=== PATIENT | male | born 1975 | race African-American/Black ===

== ENCOUNTER 2017-12-14 09:34 | Emergency (ER) | payer BC, MEDICAID, OTHER ==
[2017-12-14] MEDS ORDERED: Folic Acid 1 MG Tab PO ONE (09:57)
[2017-12-14] MEDS ORDERED: Thiamine 100 MG in Sodium Chloride 0.9% 100 ML IV ONE (09:57)
[2017-12-14] MEDS ORDERED: Sodium Chloride 0.9% 1,000 ML IV ONE ×2 (09:57→12:13)
[2017-12-14] MEDS ORDERED: LORazepam 2 MG/ML SDV IVPUSH ONE (09:58)
[2017-12-14] MEDS ORDERED: Ondansetron 4 MG/2 ML SDV IVPUSH ONE (10:07)
--- NOTE | 2017-12-14 10:07 | EDM.PDOC ---
ED HPI GENERAL MEDICAL PROBLEM - General Chief Complaint: General Stated Complaint: vomitting, had a seizure 2 days ago Time Seen by Provider: 12/14/17 09:35 Source of Information: Reports: Patient, Family History Limitations: Reports: Other (anxiety) - History of Present Illness INITIAL COMMENTS - FREE TEXT/NARRATIVE: 42 y.o.b.m with a long h/o ETOH use, H/O ETOH related Sz, was in [facility] yesterday , came to the ed with his SO due to shakiness and severe anxiety with N/V. no C/ P, dizziness or lightheadedness. Pt bit on his tongue, poss Sz while in [facility] yesterday. BP 126/86 Temp 36.7 RR 18 Pulse ox 100 Pulse 130 Onset Date: 12/13/17 Onset Time: 15:00 Duration: Hour(s):, Day(s):, Intermittent Location: Reports: Generalized Quality: Reports: Burning Severity: Moderate Improves with: Reports: Rest Worsens with: Reports: Other (etoh abuse) Context: Reports: Other (ETOH abuse) Associated Symptoms: Reports: Nausea/Vomiting, Seizure (ETOH relatates) headache Pain Score (Numeric/FACES): 8 - Related Data Allergies Allergy/AdvReac Type Severity Reaction Status Date / Time No Known Allergies Allergy Verified 12/14/17 09:50 Home Meds: Home Meds Omeprazole Magnesium [Prilosec Otc] 20 mg PO BID PRN #20 tablet. 07/11/15 [Rx] Ondansetron [Ondansetron ODT] 4 mg PO ASDIRECTED PRN 07/11/15 [History] Zolpidem Tartrate 10 mg PO BEDTIME PRN 08/01/15 [History] ALPRAZolam [Xanax] 0.25 mg PO BEDTIME PRN #2 tablet 12/14/17 [Rx] Ondansetron HCl [Zofran] 8 mg PO Q8HR PRN #10 tablet 12/14/17 [Rx] Past Medical History - Past Health History Medical/Surgical History: Denies Medical/Surgical History Other HEENT History: eye socket fracture Respiratory History: Reports: Intubation, Previous Neurological History: Reports: Brain Injury, Head Trauma, Seizure Other Neuro History: States he has had an episode like today in recent past. Psychiatric History: Reports: Addiction, Anxiety, Depression, Panic Attack Other Psychiatric History: ETOH abuse, hx using pot & meth. Social & Family History - Tobacco Use Smoking Status *Q: Current Every Day Smoker Years of Tobacco use: 30 Packs/Tins Daily: 0.5 Used Tobacco, but Quit: No Second Hand Smoke Exposure: No - Alcohol Use Days Per Week of Alcohol Use: 7 Number of Drinks Per Day: 2 Total Drinks Per Week: 14 - Recreational Drug Use Recreational Drug Use: Yes Drug Use in Last 12 Months: Yes Recreational Drug Type: Reports: Marijuana/Hashish ED ROS GENERAL - Review of Systems Review Of Systems: See Below Constitutional: Reports: Weakness HEENT: Reports: Other (tongue bite right side from a ETOH seizure.) Respiratory: Reports: No Symptoms Cardiovascular: Reports: No Symptoms Endocrine: Reports: No Symptoms GI/Abdominal: Reports: Nausea, Vomiting : Reports: No Symptoms Musculoskeletal: Reports: No Symptoms Skin: Reports: No Symptoms Neurological: Reports: Seizure (ETOH related) Psychiatric: Reports: Anxiety (ETOH withdrawel) Hematologic/Lymphatic: Reports: No Symptoms Immunologic: Reports: No Symptoms ED EXAM, GENERAL - Physical Exam Exam: See Below Exam Limited By: No Limitations General Appearance: Alert, WD/WN, Mild Distress Eye Exam: Bilateral Eye: Normal Inspection Ears: Normal External Exam Ear Exam: Bilateral Ear: Auricle Normal Nose: Normal Inspection Throat/Mouth: Normal Lips, Other (right sided tongue bite) Head: Atraumatic, Normocephalic Neck: Normal Inspection, Supple, Non-Tender, Full Range of Motion Respiratory/Chest: No Respiratory Distress, Lungs Clear, Normal Breath Sounds, No Accessory Muscle Use Cardiovascular: Normal Peripheral Pulses, Regular Rate, Rhythm, No Edema, No Gallop, No JVD, No Murmur, No Rub Peripheral Pulses: 1+: Radial (L) GI/Abdominal: Normal Bowel Sounds, Soft, Non-Tender, No Organomegaly, No Distention (Male) Exam: No Hernia Rectal (Males) Exam: Deferred Back Exam: Normal Inspection, Full Range of Motion Extremities: Normal Inspection, Normal Range of Motion, Non-Tender, No Pedal Edema Neurological: Alert, Oriented, CN II-XII Intact, Normal Cognition, Normal Gait, No Motor/Sensory Deficits Psychiatric: Normal Affect, Anxious Skin Exam: Warm, Dry, Intact, Normal Color, No Rash Lymphatic: No Adenopathy Course - Vital Signs Text/Narrative:: 42 y.o.b.m with a long h/o ETOH use, H/O ETOH related Sz, was in [facility] yesterday , came to the ed with his SO due to shakiness and severe anxiety with N/V. no C/ P, dizziness or lightheadedness. Pt bit on his tongue, poss Sz while in [facility] yesterday. BP 126/86 Temp 36.7 RR 18 Pulse ox 100 Pulse 130 PE: Anxious 42 y.o.b male with severe anxiety and nausea Labs: CBC WNL, Potassium 3.1 BUN/CR 6.4 THC pos drug screen, pos for Benzos ( after Ativan was given) Mg 1.9 ETOH 0.04 Impression: ETOH. S/P ETOH related Sz with tongue bite yesterday. Dehydration, Hypokalemia Tx: Zofran, NS Ativan, NS 2 liters, Protonix Reexam: Improved, shakines disapeared, pt was able to drink water, wants to go home Plan: D/C with instructions Last Recorded V/S: Last Vital Signs Temp 36.9 C 12/14/17 12:53 Pulse 102 H 12/14/17 12:53 Resp 18 12/14/17 12:53 BP 127/85 12/14/17 12:53 Pulse Ox 100 12/14/17 12:53 - Orders/Labs/Meds Labs: Laboratory Tests 12/14/17 12/14/17 12/14/17 Range/Units 10:05 10:05 10:05 WBC 10.5 (4.5-12.0) X10-3/uL RBC 5.05 (4.30-5.75) x10(6)uL Hgb 14.8 (11.5-15.5) g/dL Hct 44.8 (30.0-51.3) % MCV 88.7 (80-96) fL MCH 29.3 (27.7-33.6) pg MCHC 33.0 (32.2-35.4) g/dL RDW 12.8 (11.5-15.5) % Plt Count 215 (125-369) X10(3)uL MPV 7.9 (7.4-10.4) fL Neut % (Auto) 64.1 (46-82) % Lymph % (Auto) 23.3 (13-37) % [place] % (Auto) 10.9 (4-12) % Eos % (Auto) 0 L (1.0-5.0) % Baso % (Auto) 2 (0-2) % Neut # (Auto) 6.7 (1.6-8.3) # Lymph # (Auto) 2.5 (0.6-5.0) # [place] # (Auto) 1.1 (0.0-1.3) # Eos # (Auto) 0.0 (0.0-0.8) # Baso # (Auto) 0.2 (0.0-0.2) # Sodium 135 (135-145) mmol/L Potassium 3.1 L (3.5-5.3) mmol/L Chloride 91 L (100-110) mmol/L Carbon Dioxide 29 (21-32) mmol/L BUN 7 (7-18) mg/dL Creatinine 1.1 (0.70-1.30) mg/dL Est Cr Clr Drug Dosing 98.22 mL/min Estimated GFR (MDRD) > 60 (>60) BUN/Creatinine Ratio 6.4 L (9-20) Glucose 104 (80-116) mg/dL Calcium 11.5 H (8.6-10.2) mg/dL Magnesium 1.9 (1.8-2.5) mg/dL Urine Opiates Screen (NEGATIVE) Ur Oxycodone Screen (NEGATIVE) Ur Propoxyphene Screen (NEGATIVE) Ur Barbituates Screen (NEGATIVE) Ur Tricyclics Screen (NEGATIVE) Ur Phencyclidine Scrn (NEGATIVE) Ur Amphetamine Screen (NEGATIVE) Urine MDMA Screen (NEGATIVE) U Benzodiazepines Scrn (NEGATIVE) U Cocaine Metab Screen (NEGATIVE) U Marijuana (THC) Screen (NEGATIVE) Ethyl Alcohol 0.04 H (<0.03) % 12/14/17 Range/Units 11:10 WBC (4.5-12.0) X10-3/uL RBC (4.30-5.75) x10(6)uL Hgb (11.5-15.5) g/dL Hct (30.0-51.3) % MCV (80-96) fL MCH (27.7-33.6) pg MCHC (32.2-35.4) g/dL RDW (11.5-15.5) % Plt Count (125-369) X10(3)uL MPV (7.4-10.4) fL Neut % (Auto) (46-82) % Lymph % (Auto) (13-37) % [place] % (Auto) (4-12) % Eos % (Auto) (1.0-5.0) % Baso % (Auto) (0-2) % Neut # (Auto) (1.6-8.3) # Lymph # (Auto) (0.6-5.0) # [place] # (Auto) (0.0-1.3) # Eos # (Auto) (0.0-0.8) # Baso # (Auto) (0.0-0.2) # Sodium (135-145) mmol/L Potassium (3.5-5.3) mmol/L Chloride (100-110) mmol/L Carbon Dioxide (21-32) mmol/L BUN (7-18) mg/dL Creatinine (0.70-1.30) mg/dL Est Cr Clr Drug Dosing mL/min Estimated GFR (MDRD) (>60) BUN/Creatinine Ratio (9-20) Glucose (80-116) mg/dL Calcium (8.6-10.2) mg/dL Magnesium (1.8-2.5) mg/dL Urine Opiates Screen Negative (NEGATIVE) Ur Oxycodone Screen Negative (NEGATIVE) Ur Propoxyphene Screen Negative (NEGATIVE) Ur Barbituates Screen Negative (NEGATIVE) Ur Tricyclics Screen Negative (NEGATIVE) Ur Phencyclidine Scrn Negative (NEGATIVE) Ur Amphetamine Screen Negative (NEGATIVE) Urine MDMA Screen Negative (NEGATIVE) U Benzodiazepines Scrn Positive H (NEGATIVE) U Cocaine Metab Screen Negative (NEGATIVE) U Marijuana (THC) Screen Positive H (NEGATIVE) Ethyl Alcohol (<0.03) % Meds: Medications Discontinued Medications Generic Name Dose Route Start Last Admin Trade Name Freq PRN Reason Stop Dose Admin Folic Acid 1 mg 12/14/17 09:57 12/14/17 10:24 Folic Acid PO 12/14/17 09:58 1 mg ONETIME ONE Administration Sodium Chloride 1,000 mls @ 999 mls/hr 12/14/17 09:57 12/14/17 10:16 Normal Saline IV 12/14/17 10:57 999 mls/hr .BOLUS ONE Administration Thiamine HCl 100 mg/ Sodium 101 mls @ 202 mls/hr 12/14/17 09:57 12/14/17 10: 25 Chloride IV 12/14/17 09:58 202 mls/hr ONETIME ONE Administration Sodium Chloride 1,000 mls @ 999 drops/hr 12/14/17 12:13 12/14/17 12:17 Normal Saline IV 12/15/17 03:13 999 drops/hr .BOLUS ONE Administration Lorazepam 1 mg 12/14/17 09:58 12/14/17 10:17 Ativan IVPUSH 12/14/17 09:59 1 mg ONETIME ONE Administration Ondansetron HCl 8 mg 12/14/17 10:07 12/14/17 10:22 Zofran IVPUSH 12/14/17 10:08 8 mg ONETIME ONE Administration Departure - Departure Time of Disposition: 12:45 Disposition: Home, Self-Care 01 Condition: Good Clinical Impression: ETOH abuse, Seizures - Discharge Information Prescriptions: Ondansetron HCl [Zofran] 8 mg PO Q8HR PRN #10 tablet PRN Reason: for nause ALPRAZolam [Xanax] 0.25 mg PO BEDTIME PRN #2 tablet PRN Reason: at bed time Instructions: Alcohol Use Disorder, Alcohol Abuse and Nutrition, Seizure, Adult , [id number], Alcohol Withdrawal, [id number] Referrals: Camron Garcia MD [Primary Care Provider] - Forms: ED Department Discharge Additional Instructions: Please do not drink any ETOH, please take thiamine, Folic acid and Multivitamins daily, please f/u with your PMD, come back if your symptoms get worse acutely
[2017-12-14 12:56] VITALS: BP 127/85
== END 2017-12-14 13:06 | disposition home or self-care (01) ==
LOC: FB.ED 09:34
DX: R56.9 Unspecified convulsions (principal); F10.10 Alcohol abuse, uncomplicated; Y90.0 Blood alcohol level of less than 20 mg/100 ml; F17.210 Nicotine dependence, cigarettes, uncomplicated
CPT/HCPCS: 80048; 80305; 83735; 85025; 96361; 96365; 96375; 99284; A9270-GY; G0480; J2060; J2405; J3411; J7030; J7040